=== PATIENT | female | born 1965 ===

== ENCOUNTER 2023-07-13 06:05 | Day surgery (SDC) | payer BC ==
[2023-07-13] VITALS (13 sets, daily range): BP systolic 126–154; BP diastolic 58–89; PULSE 62–84; TEMP 97.9–98
[~2023-07-13] VITALS: Ht 147.3 cm; Wt 57.9 kg
[~2023-07-13 06:05] MED LIST: GLUCOPHAGE1000 MG PO; GLUCOTROL10 MG PO; LIPITOR 10MG10 MG PO; LOPRESSOR100 MG PO; NORVASC 5MG5 MG/TAB PO; PERCOCET 325 MG1 TA2 PO; TRULICITY0.75 MG/0. SQ
[2023-07-13] MEDS ORDERED: LR 1,000 ML IV SCH (07:00)
[2023-07-13] MEDS ORDERED: Celecoxib 200 MG CAP PO SCH (07:30)
[2023-07-13] MEDS ORDERED: Acetaminophen 500 MG TAB PO SCH ×2 (07:30→13:00)
[2023-07-13] MEDS ORDERED: Gabapentin 100 MG CAP PO SCH (07:30)
[2023-07-13] MEDS ORDERED: Succinylcholine PF 200 MG/10 ML SYRINGE IV ONE (07:42)
[2023-07-13] MEDS ORDERED: Lidocaine PF 2% (20 MG/ML) 5 ML VIAL ONE (07:43)
[2023-07-13] MEDS ORDERED: Rocuronium 50 MG/5 ML Multi-Dose VIAL ONE (07:43)
[2023-07-13] MEDS ORDERED: fentaNYL 50 MCG/ML 2 ML VIAL ONE (07:43)
[2023-07-13] MEDS ORDERED: NS 10 ML IV ONE (07:51)
[2023-07-13] MEDS ORDERED: Ondansetron 4 MG/2 ML VIAL IV PRN ×2 (08:30→09:45)
[2023-07-13] MEDS ORDERED: oxyCODONE 5 MG TAB PO PRN ×2 (08:30)
[2023-07-13] MEDS ORDERED: Morphine 4 MG/ML VIAL IV PRN (08:30)
[2023-07-13] MEDS ORDERED: 1/2 NS 1,000 ML IV SCH (08:30)
[2023-07-13] MEDS ORDERED: Naloxone 0.4 MG/ML VIAL IV PRN (08:30)
[2023-07-13] MEDS ORDERED: Ondansetron 4 MG/2 ML VIAL ONE (08:48)
[2023-07-13] MEDS ORDERED: dexAMETHasone 10 MG/ML VIAL ONE (08:48)
[2023-07-13] MEDS ORDERED: Topical Skin Adhesive 1 EACH (1 ML) TOP ONE (08:55)
[2023-07-13] MEDS ORDERED: Metoprolol Tartrate 50 MG TAB PO SCH (09:00)
[2023-07-13] MEDS ORDERED: metFORMIN 500 MG TAB PO SCH ×2 (09:00→17:00)
[2023-07-13] MEDS ORDERED: Atorvastatin 10 MG TAB PO SCH (09:00)
[2023-07-13] MEDS ORDERED: Meperidine 50 MG/ML 1 ML VIAL IV PRN (09:45)
[2023-07-13] MEDS ORDERED: HYDROmorphone 1 MG/1 ML SYRINGE [PACU/SDC ONLY] IV PRN (09:45)
[2023-07-13] MEDS ORDERED: hydrALAZINE 20 MG/ML 1 ML VIAL IV PRN (09:45)
[2023-07-13] MEDS ORDERED: fentaNYL 50 MCG/ML 1 ML SYRINGE/VIAL [PACU/SDC ONLY] IV PRN (09:45)
[2023-07-13] MEDS ORDERED: Ketorolac 15 MG/ML VIAL IV SCH (10:00)
[2023-07-13] MEDS ORDERED: LR 1,000 ML IV ONE (10:08)
[2023-07-13] MEDS ORDERED: Ketorolac 30 MG/ML VIAL ONE (10:17)
--- NOTE | 2023-07-13 12:00 | NUR ---
pt brought to room from pacu, pt had episode of emesis upon arrival. vss. zofran given in pacu. x5 lap sites are cdi. trivedi to dd. fluids infusing into left ac IV. med rec complete. oriented pt to room. encouraged pt to rest for now in hopes that the nausea subsides.
--- NOTE | 2023-07-13 14:00 | NUR ---
pt more awake and alert, pt denies pain and nausea. vitals remain stable.
--- NOTE | 2023-07-13 15:14 | NUR ---
Skein Winder met with patient to complete intake. Patient verified that she lives in [facility] with her Pawel ([phone]). she sees Dr. Almanzar as her PCP and uses [facility] pharmacy in [place]. Patient uses a CPAP as her only DME. Patient denied having a DPOA and denied wanting to complete one at this time. Patient plans to return home at discharge with no needs. Discharge plan: Home
[2023-07-13] MEDS ORDERED: ceFAZolin 1 G in Water For Injection,Sterile 10 ML IV SCH (15:30)
--- NOTE | 2023-07-13 19:33 | NUR ---
report received from kristine jeffries. pt resting in bed watching tv with at bedside. pt denies pain. call light in reach. all needs met at this time.
[2023-07-13] MEDS ORDERED: amLODIPine 5 MG TAB PO SCH (21:00)
--- NOTE | 2023-07-13 21:44 | NUR ---
shift assessment complete, see documentation. pt tolerated hs meds. pt denied pain. call light in reach. all needs met at this time.
[2023-07-14 00:30] VITALS: BP 113/69; PULSE 83; TEMP 98.1
[2023-07-14 00:50] VITALS: BP_SYST 113
--- NOTE | 2023-07-14 01:00 | NUR ---
Resumed cares from MIGUEL Arrington, assessed at this time, see shift assessment, reports pain isn't bad, with 5 lap sites edges well approximated, denies nausea or vomiting, with IV infusing well on left arm, still with trivedi to dependent drainage, farnaz crackers given, denies further needs, call light and personal items within reach,will continue to monitor.
[2023-07-14 04:28] VITALS: BP 115/66; PULSE 78; TEMP 97.7
[2023-07-14 05:37] VITALS: BP_SYST 115
[2023-07-14 07:34] VITALS: BP 115/70; PULSE 68; TEMP 98.1
[2023-07-14 08:06] VITALS: BP_SYST 115
--- NOTE | 2023-07-14 08:06 | NUR ---
PT doing well this morning. She had her trivedi catheter removed. Informed her to notify nursing when she feels like she needs to go to the bathroom. SCDs removed at this time. Pt states that her pain is not bad, 2/10 at rest. Educated on pain medications that she has ordered. PCT did assist with ordering her some breakfast. Discussed her BP medication with what her BP was this morning. She stated she was okay to take her medication. No other needs, call light within reach
--- NOTE | 2023-07-14 10:25 | NUR ---
Reviewed discharge instructions with pt and spouse. Discussed urology office would call to schedule follow up appointment. INT removed from left AC. Pt escorted out via wheelchair at this time
== END 2023-07-14 10:27 | disposition home or self-care (01) ==
LOC: SDCO 06:05 → SURG 12:00 → SDCO 07-14 10:27
DX: N20.1 Calculus of ureter (principal); G47.33 Obstructive sleep apnea (adult) (pediatric)
CPT/HCPCS: OP; A4314; J0690; J1100; J1885; J2405; J2704; J3010; J7120